=== PATIENT | female | born 1950 | race African-American/Black ===

== ENCOUNTER 2022-09-06 15:16 | Emergency (ER) | payer MEDICARE, MEDICAID ==
[~2022-09-06] VITALS: Ht 172.7 cm; Wt 77.0 kg
[2022-09-06] MEDS ORDERED: ONDANSETRON 4MG ODT PO STA (22:34)
[2022-09-06] MEDS ORDERED: VISCOUS LIDOCAINE 2% 15 ML UDC PO STA (22:34)
[2022-09-06] MEDS ORDERED: MAGNESIUM/ALUMINUM HYDROXIDE/SIMETHICONE 30ML UDC PO STA (22:34)
[2022-09-06 23:32] LABS: BASOPHILS % 0.3 % (0.0-2.0); HEMOGLOBIN. 13.1 g/dL (12.0-16.0); LYMPHOCYTES % 14.7 % (20.0-50.0); MEAN CORPUSCULAR HEMOGLOBIN 29.5 pg (28.0-32.0); MEAN CORPUSCULAR VOLUME 88.3 fL (81.0-99.0); MEAN PLATELET VOLUME 7.8 fl (7.4-10.4); MONOCYTES % 9.9 % (2.0-8.0); NEUTROPHILS % 75.1 % (40.0-76.0); PLATELET 236 x1000/uL (130-400); RED BLOOD CELL COUNT 4.42 mill/uL (4.2-5.4); RED CELL DISTRIBUTION WIDTH 13.9 % (11.6-14.6)
[2022-09-06 23:35] LABS: CHLORIDE 106 mEq/L (98-107)
[2022-09-06 23:40] LABS: CLARITY URINE CLOUDY (CLEAR); COLOR URINE YELLOW (YELLOW); KETONES URINE TRACE (NEGATIVE); LEUKOCYTE ESTERASE URINE NEGATIVE (NEGATIVE); NITRITE URINE NEGATIVE (NEGATIVE); OCCULT BLOOD URINE NEGATIVE (NEGATIVE); PH URINE 5.5 (4.5-8.0); PROTEIN URINE 1+ (NEGATIVE); SPECIFIC GRAVITY URINE 1.027 (1.005-1.030)
[2022-09-06] MEDS ORDERED: ONDA4TAB11 PO (23:59)
[2022-09-07] VITALS: BP 108/65
== END 2022-09-07 | disposition home or self-care (01) ==
LOC: ER 15:16
DX: T63.301A Toxic effect of unspecified spider venom, accidental (unintentional), initial encounter (principal); R11.2 Nausea with vomiting, unspecified; R42 Dizziness and giddiness; L98.8 Other specified disorders of the skin and subcutaneous tissue; G89.29 Other chronic pain; M54.89 Other dorsalgia; I10 Essential (primary) hypertension; Y92.89 Other specified places as the place of occurrence of the external cause
CPT/HCPCS: 36415; 80053; 81003; 83690; 85025; 93005; 99284; Q0162